=== PATIENT | male | born 1995 | race Caucasian/White ===

== ENCOUNTER 2021-08-16 08:46 | Emergency (ER) | payer OTHER ==
[~2021-08-16] VITALS: Ht 160 cm; Wt 53.1 kg
[2021-08-16] MEDS ORDERED: SODIUM CHLORIDE 0.9% 1000ML 1,000 ML IV STA (09:16)
[2021-08-16 09:49] LABS: BASOPHILS # (AUTO) 0.1 (0.0-0.1); BASOPHILS % 0.8 % (0.0-1.0); EOSINOPHILS % 0.3 % (0.0-6.0); HEMATOCRIT 49.6 % (38.2-49.6); HEMOGLOBIN 16.7 g/dL (14.0-18.0); LYMPHOCYTES # (AUTO) 1.3 (1.0-3.2); LYMPHOCYTES % 19.8 % (18.0-39.1); MEAN CORPUSCULAR HEMOGLOBIN 29.9 pg (28-32); MEAN CORPUSCULAR HGB CONC 33.7 g/dL (31-35); MEAN CORPUSCULAR VOLUME 88.9 fL (81-99); MONOCYTES # (AUTO) 0.8 (0.2-0.8); MONOCYTES % 12.7 % (4.4-11.3); NEUTROPHILS # (AUTO) 4.2 (2.1-6.9); NEUTROPHILS % 65.3 % (38.7-80.0); PLATELET COUNT 135 x10e3/uL (140-360); RED BLOOD COUNT 5.58 x10e6/uL (4.3-5.7); RED CELL DISTRIBUTION WIDTH 14.2 % (11.7-14.4)
[2021-08-16 10:22] LABS: ALBUMIN 4.4 g/dL (3.5-5.0); ALBUMIN/GLOBULIN RATIO 1.3 (0.8-2.0); ANION GAP 18.7 mmol/L (8-16); CALCIUM 8.9 mg/dL (8.4-10.2); CREATININE, SERUM 1.22 mg/dL (0.72-1.25); POTASSIUM 4.7 mmol/L (3.5-5.1)
[2021-08-16 10:28] LABS: CREATINE KINASE MB 1.6 ng/mL (0-5.0)
[2021-08-16] MEDS ORDERED: LEVETIRACETAM 500MG/5ML VIAL 1,000 MG in SODIUM CHLORIDE 0.9% 100 ML IV ONE (10:30)
[2021-08-16 12:00] LABS: CLARITY,URINE CLEAR (CLEAR); COLOR,URINE YELLOW (YELLOW); KETONES,URINE NEGATIVE (NEGATIVE); LEUKOCYTE ESTERASE ,URINE NEGATIVE (NEGATIVE); NITRITE,URINE NEGATIVE (NEGATIVE); PROTEIN,URINE DIPSTICK NEGATIVE (NEGATIVE)
[2021-08-16 12:03] LABS: URINE UROBILINOGEN 0.2 mg/dL (0.2 - 1)
[2021-08-16 12:05] LABS: AMPHETAMINES SCREEN,URINE NEGATIVE (NEGATIVE); BACTERIA,URINE FEW /HPF; BENZODIAZEPINES SCREEN,URINE NEGATIVE (NEGATIVE); EPITHELIAL CELLS,URINE FEW /LPF; PHENCYCLIDINE SCREEN,URINE NEGATIVE (NEGATIVE); RBC,URINE 0-5 /HPF (0-5); WBC,URINE (MAN) 0-5 /HPF (0-5)
== END 2021-08-16 14:00 | disposition other institution (70) ==
LOC: ER 09:00
DX: R56.9 Unspecified convulsions (principal); F84.0 Autistic disorder; Q43.1 Hirschsprung's disease; Z20.822 Contact with and (suspected) exposure to COVID-19; Z93.3 Colostomy status
CPT/HCPCS: 36415; 70450; 71045; 74018; 74176; 80053; 80307; 81001; 82550; 82553; 83735; 84484; 85025; 87040; 87086; 93005; 99285; J1953; J7030; J7050; U0002

== ENCOUNTER 2021-10-05 10:12 | Emergency (ER) | payer OTHER ==
[~2021-10-05] VITALS: Ht 162.6 cm; Wt 52.6 kg
[2021-10-05] MEDS ORDERED: PREDNISONE20 MG PO (11:36)
[2021-10-05] MEDS ORDERED: AFRIN30 ML INH (11:36)
[2021-10-05] MEDS ORDERED: AZITHROMYCIN250 MG PO (11:36)
== END 2021-10-05 11:41 | disposition home or self-care (01) ==
LOC: FSED 11:27
DX: J32.9 Chronic sinusitis, unspecified (principal)
CPT/HCPCS: 99282